=== PATIENT | male | born 1960 | race Caucasian/White ===

== ENCOUNTER 2016-11-11 15:32 | Observation (INO) | payer OTHER ==
[2016-11-11 15:56] VITALS: BP 132/63; PULSE 82; RESP 16; TEMP 98.1; O2SAT 96
--- NOTE | 2016-11-11 15:59 | PD ---
HPI Chief Complaint: Cardiac Complaint Travel History International Travel<30 days: No Contact w/Intl Traveler<30days: No Traveled to known affect area: No PFSH Past Medical History Cardiovascular Problems: Yes Allergies-Medications Reported Meds & Prescriptions Reported Meds & Active Scripts Active Reported Fish Oil 1000 mg ([place]-3 Fatty Acids) Unknown Strength Cap 1 Cap PO DAILY Aspirin Adult Low Strength (Aspirin) 81 Mg Tabdr 324 Mg PO DAILY Metoprolol Succinate ER 24 HR (Metoprolol Succinate) 50 Mg Tab 50 Mg PO DAILY Fenofibrate 160 Mg Tab 160 Mg PO DAILY Atorvastatin (Atorvastatin Calcium) 40 Mg Tab 40 Mg PO DAILY Data Data Last Documented VS Vital Signs Date Time Temp Pulse Resp B/P Pulse Ox O2 Delivery O2 Flow Rate FiO2 11/11/16 15:58 Room Air 11/11/16 15:56 98.1 82 16 132/63 96 Orders Electrocardiogram (11/11/16 15:49) Ckmb (Isoenzyme) Profile (11/11/16 15:49) Complete Blood Count With Diff (11/11/16 15:49) Comprehensive Metabolic Panel (11/11/16 15:49) Magnesium (Mg) (11/11/16 15:49) Prothrombin Time / Inr (Pt) (11/11/16 15:49) Act Partial Throm Time (Ptt) (11/11/16 15:49) Troponin I (11/11/16 15:49) Lipase (11/11/16 15:49) Chest, Single Ap (11/11/16 15:49) Ecg Monitoring (11/11/16 15:49) Bilateral Bp Monitoring (11/11/16 15:49) Iv Access Insert/Monitor (11/11/16 15:49) Oximetry (11/11/16 15:49) Sodium Chloride 0.9% Flush (Ns Flush) (11/11/16 16:00) Yudy Mckeon Nov 11, 2016 15:59
[2016-11-11] MEDS ORDERED: SODIUM CHLORIDE 0.9% FLUSH 10 ML FLUSH IVF PRN (16:00)
[2016-11-11] MEDS ORDERED: METO50TA11 PO (16:34)
[2016-11-11] MEDS ORDERED: ATOR40TA16 PO (16:34)
[2016-11-11] MEDS ORDERED: FENO160T PO (16:34)
[2016-11-11] MEDS ORDERED: FISH100020 PO (16:34)
[2016-11-11] MEDS ORDERED: ASPI1TAB91 PO (16:34)
--- NOTE | 2016-11-11 16:37 | RADRPT ---
EXAM DATE/TIME: 11/11/2016 16:07 [place] COMPARISON: No previous studies available for comparison. INDICATIONS : Chest pain. MEDICAL HISTORY : Myocardial infarction. Coronary artery disease, hyperlipidemia SURGICAL HISTORY : Coronary artery bypass graft. ENCOUNTER: Initial ACUITY: 1 day PAIN SCORE: 3/10 LOCATION: Bilateral chest FINDINGS: The lungs are clear without infiltrate, nodule, or mass. There is no appreciable pleural effusion fo r technique. Heart and mediastinum are unremarkable. There is evidence for prior median sternotomy. CONCLUSION: No acute cardiopulmonary disease. Yesenia De Jesus MD on November 11, 2016 at 16:35 Board Certified Radiologist. This report was verified electronically.
--- NOTE | 2016-11-11 16:46 | PD ---
HPI Chief Complaint: Cardiac Complaint Time Seen by Provider: 15:58 Travel History International Travel<30 days: No Contact w/Intl Traveler<30days: No Traveled to known affect area: No History of Present Illness HPI 56-year-old male presents with chest pain with exertion. He has none at rest currently. He received 4 baby aspirin prior to arrival. He does not recall who his senior lead project manager is but states that it is someone from [facility]. He states his last heart workup was when he had his bypass a couple years ago. He states he can't remember when he saw his senior lead project manager last. Quality was pressure. Severity is currently resolved. He denies modifying factors other than movement. He states he didn't have any nitroglycerin and it went away on its own. PFSH Past Medical History Cardiovascular Problems: Yes Coronary Artery Disease: Yes Hypertension: Yes Myocardial Infarction: Yes Triglycerides - High: Yes Past Surgical History Coronary Artery Bypass Graft: Yes (x4) Social History Alcohol Use: Yes Tobacco Use: Yes Substance Use: No Allergies-Medications Reported Meds & Prescriptions Reported Meds & Active Scripts Active Reported Fish Oil 1000 mg ([place]-3 Fatty Acids) Unknown Strength Cap 1 Cap PO DAILY Aspirin Adult Low Strength (Aspirin) 81 Mg Tabdr 324 Mg PO DAILY Metoprolol Succinate ER 24 HR (Metoprolol Succinate) 50 Mg Tab 50 Mg PO DAILY Fenofibrate 160 Mg Tab 160 Mg PO DAILY Atorvastatin (Atorvastatin Calcium) 40 Mg Tab 40 Mg PO DAILY Review of Systems Except as stated in HPI: all other systems reviewed are Neg Physical Exam Exam Limitations: Poor Historian Narrative GENERAL: Well-nourished, well-developed patient. SKIN: Warm and dry. HEAD: Normocephalic and atraumatic. EYES: No injection or drainage. ENT: No nasal drainage noted. NECK: Supple, trachea midline. CARDIOVASCULAR: Regular rate and rhythm RESPIRATORY: Breath sounds equal bilaterally at apices. No accessory muscle use. GASTROINTESTINAL: Abdomen soft, non-tender, nondistended. NEUROLOGICAL: Awake and alert. Moves all extremities. Normal speech. Data Data Last Documented VS Vital Signs Date Time Temp Pulse Resp B/P Pulse Ox O2 Delivery O2 Flow Rate FiO2 11/11/16 15:58 Room Air 11/11/16 15:56 98.1 82 16 132/63 96 Orders Electrocardiogram (11/11/16 15:49) Ckmb (Isoenzyme) Profile (11/11/16 15:49) Complete Blood Count With Diff (11/11/16 15:49) Comprehensive Metabolic Panel (11/11/16 15:49) Magnesium (Mg) (11/11/16 15:49) Prothrombin Time / Inr (Pt) (11/11/16 15:49) Act Partial Throm Time (Ptt) (11/11/16 15:49) Troponin I (11/11/16 15:49) Lipase (11/11/16 15:49) Chest, Single Ap (11/11/16 15:49) Ecg Monitoring (11/11/16 15:49) Bilateral Bp Monitoring (11/11/16 15:49) Iv Access Insert/Monitor (11/11/16 15:49) Oximetry (11/11/16 15:49) Sodium Chloride 0.9% Flush (Ns Flush) (11/11/16 16:00) CKMB (11/11/16 16:00) CKMB% (11/11/16 16:00) Labs Laboratory Tests Test 11/11/16 16:00 White Blood Count 9.4 TH/MM3 Red Blood Count 5.24 MIL/MM3 Hemoglobin 13.8 GM/DL Hematocrit 41.5 % Mean Corpuscular Volume 79.2 FL Mean Corpuscular Hemoglobin 26.3 PG Mean Corpuscular Hemoglobin 33.2 % Concent Red Cell Distribution Width 16.0 % Platelet Count 292 TH/MM3 Mean Platelet Volume 8.5 FL Neutrophils (%) (Auto) 62.0 % Lymphocytes (%) (Auto) 29.7 % Monocytes (%) (Auto) 6.1 % Eosinophils (%) (Auto) 1.5 % Basophils (%) (Auto) 0.7 % Neutrophils # (Auto) 5.9 TH/MM3 Lymphocytes # (Auto) 2.8 TH/MM3 Monocytes # (Auto) 0.6 TH/MM3 Eosinophils # (Auto) 0.1 TH/MM3 Basophils # (Auto) 0.1 TH/MM3 CBC Comment AUTO DIFF Prothrombin Time 10.8 SEC Prothromb Time International 1.0 RATIO Ratio Activated Partial 21.5 SEC Thromboplast Time Sodium Level 139 MEQ/L Potassium Level 4.2 MEQ/L Chloride Level 107 MEQ/L Carbon Dioxide Level 21.5 MEQ/L Anion Gap 11 MEQ/L Blood Urea Nitrogen 19 MG/DL Creatinine 1.15 MG/DL Estimat Glomerular Filtration 65 ML/MIN Rate Random Glucose 141 MG/DL Calcium Level 9.2 MG/DL Magnesium Level 1.9 MG/DL Total Bilirubin 0.2 MG/DL Aspartate Amino Transf 24 U/L (AST/SGOT) Alanine Aminotransferase 19 U/L (ALT/SGPT) Alkaline Phosphatase 47 U/L Total Creatine Kinase 156 U/L Troponin I LESS THAN 0.02 NG/ML Total Protein 7.5 GM/DL Albumin 3.5 GM/DL Lipase 214 U/L MDM Medical Decision Making Medical Screen Exam Complete: Yes Emergency Medical Condition: Yes Medical Record Reviewed: Yes (past history confirmed) Interpretation(s) EKG shows NSR, no ST elevation or depression, and no arrhythmias. No significant T-wave inversions. CBC & BMP Diagram 11/11/16 16:00 Last 24 hours Impressions Chest X-Ray 11/11/16 1549 Signed Impressions: Service Date/Time: Sunday, November 11, 2016 16:07 - CONCLUSION: No acute cardiopulmonary disease. KGeeta De Jesus MD Differential Diagnosis Cardiac, gastritis, musculoskeletal, pneumothorax Narrative Course Will check blood work, chest x-ray and follow ed workup no acute, agrees to [facility] observation Diagnosis Primary Impression: Chest pain Qualified Code: R07.9 - Chest pain, unspecified type Bobbi Tracey MD Nov 11, 2016 16:46
[2016-11-11 17:51] LABS: APTT (PATIENT) 21.5 SEC (24.3-30.1); PROTHROMBIN TIME - PATIENT 10.8 SEC (9.8-11.6)
[2016-11-11 17:53] LABS: AUTOMATED NEUTROPHIL # 5.9 TH/MM3 (1.8-7.7); BASOPHIL # 0.1 TH/MM3 (0-0.2); BASOPHIL % 0.7 % (0.0-2.0); EOSINOPHIL # 0.1 TH/MM3 (0-0.4); EOSINOPHIL % 1.5 % (0.0-4.0); HEMATOCRIT 41.5 % (39.0-51.0); LYMPH % 29.7 % (9.0-44.0); LYMPHOCYTE # 2.8 TH/MM3 (1.0-4.8); MEAN CELL VOLUME 79.2 FL (80.0-100.0); MEAN CORPUSCULAR HEMOGLOBIN 26.3 PG (27.0-34.0); MEAN CORPUSCULAR HGB CONC 33.2 % (32.0-36.0); MONO % 6.1 % (0.0-8.0); PLATELET COUNT 292 TH/MM3 (150-450); RED BLOOD COUNT 5.24 MIL/MM3 (4.50-5.90); WHITE BLOOD COUNT 9.4 TH/MM3 (4.0-11.0)
[2016-11-11 17:58] LABS: HEMO FLAGS AUTO DIFF
[2016-11-11 18:07] LABS: ALKALINE PHOSPHATASE 47 U/L (45-117); ALT (GPT) 19 U/L (12-78); ANION GAP 11 MEQ/L (5-15); AST (GOT) 24 U/L (15-37); BICARBONATE 21.5 MEQ/L (21.0-32.0); BLOOD UREA NITROGEN 19 MG/DL (7-18); CHLORIDE 107 MEQ/L (98-107); CREATINE KINASE 156 U/L (39-308); GLOMERULAR FILTRATION RATE 65 ML/MIN (>89); MAGNESIUM 1.9 MG/DL (1.5-2.5); SODIUM (NA) 139 MEQ/L (136-145); TOTAL BILIRUBIN ADULT 0.2 MG/DL (0.2-1.0)
[2016-11-11 18:08] LABS: POTASSIUM 4.2 MEQ/L (3.5-5.1)
[2016-11-11 18:20] LABS: CKMB 1.2 NG/ML (0.5-3.6)
[2016-11-11] MEDS ORDERED: SODIUM CHLORIDE 0.9% FLUSH 10 ML FLUSH IV FLUSH PRN (18:30)
[2016-11-11] MEDS ORDERED: ROCURONIUM INJ 50 MG/5 ML VIAL ONE (19:02)
[2016-11-11 19:03] VITALS: BP 166/70; PULSE 62; RESP 17; O2SAT 96
[2016-11-11] MEDS ORDERED: ETOMIDATE 40 MG/20 ML VIAL ONE (19:03)
[2016-11-11 19:19] LABS: SCAN/DIFF AUTO DIFF CONFIRMED
[2016-11-11 19:40] LABS: CREATINE KINASE 126 U/L (39-308)
[2016-11-11 19:46] VITALS: BP 148/70; PULSE 68; RESP 16; O2SAT 96
[2016-11-11 19:53] LABS: CKMB 1.3 NG/ML (0.5-3.6)
[2016-11-11] MEDS ORDERED: PROPOFOL 1000 MG/100 ML INJ 100 ML ONE (20:02)
[2016-11-11] MEDS ORDERED: SODIUM CHLORIDE 0.9% FLUSH 10 ML FLUSH IV FLUSH SCH (21:00)
[2016-11-11 22:20] LABS: CREATINE KINASE 127 U/L (39-308)
[2016-11-11 23:03] VITALS: BP 135/55; PULSE 76; RESP 16; O2SAT 97
[2016-11-11 23:28] VITALS: BP 177/79; PULSE 70; RESP 20; TEMP 97.9; O2SAT 98
[2016-11-12 01:20] VITALS: PULSE 69
[2016-11-12 03:39] VITALS: BP 114/58; PULSE 61; RESP 18; TEMP 98; O2SAT 95
[2016-11-12 04:00] VITALS: PULSE 71
[2016-11-12 07:38] VITALS: BP 121/58; PULSE 78; RESP 16; TEMP 97.9; O2SAT 97
[2016-11-12] MEDS ORDERED: OMEP20TA PO (07:43)
[2016-11-12] MEDS ORDERED: POTA-163 PO (07:43)
[2016-11-12] MEDS ORDERED: CLON0.2T PO (07:43)
[2016-11-12] MEDS ORDERED: CIAL5TAB PO (07:43)
[2016-11-12] MEDS ORDERED: ENAL10TA7 (07:43)
[2016-11-12] MEDS ORDERED: TRAM-492 PO (07:43)
[2016-11-12] MEDS ORDERED: PLAV75TA29 PO (07:43)
[2016-11-12 07:50] VITALS: O2SAT 97
--- NOTE | 2016-11-12 15:32 | HHI.HP ---
HPI Primary Care Physician Олег Ugarte, DO Chief Complaint Chest pain History of Present Illness Mr. Boo is a 56-year-old male patient with a known medical history of CAD with 4 stents, HTN, and dyslipidemia who presented to the ED with complaints of chest pain. Patient states that he had been stressed regarding a family issue and suddenly noticed a tight and squeezing in nature, left-sided chest pain, rated a 10/10 on pain scale, lasting roughly 10 minutes and eventually subsided after rest. Admits to associated dyspnea and diaphoresis. Denies any nausea or vomiting. Denies any radiation of the pain. Pain has currently subsided. He does state 2 years ago he had a stress test which was abnormal and eventually led to a CABG x 4 vessels. Does admit to current tobacco use and a [id number] history of cigarette smoking. Patient states he does follow with a cnc manufacturing engineer but does not remember his name and supposedly has a stress test scheduled in 2 weeks. Review of Systems Respiratory: COMPLAINS OF: See HPI, Shortness of breath Cardiovascular: COMPLAINS OF: See HPI, Chest pain Gastrointestinal: DENIES: Nausea, Vomiting Psychiatric: COMPLAINS OF: Anxiety Past Family Social History Allergies: Coded Allergies: No Known Allergies (Unverified , 11/11/16) Past Medical History CAD with history of CABG Hypertension Dyslipidemia Past Surgical History CABG x 4 vessels Reported Medications Reported Meds & Active Scripts Active Reported Fish Oil 1000 mg ([place]-3 Fatty Acids) Unknown Strength Cap 1 Cap PO DAILY Aspirin Adult Low Strength (Aspirin) 81 Mg Tabdr 324 Mg PO DAILY Fenofibrate 160 Mg Tab 160 Mg PO DAILY Family History Denies any significant family medical history of cardiovascular disease. Social History States he quit smoking cigarettes 30 hours ago, has smoked 1 ppd for 35 years. Denies any alcohol use. Does admit to occasional marijuana use. Physical Exam Vital Signs Vital Signs Date Time Temp Pulse Resp B/P (MAP) Pulse Ox O2 Delivery O2 Flow Rate FiO2 11/12/16 07:50 97 21 11/12/16 07:38 97.9 78 16 121/58 (79) 97 11/12/16 04:00 71 11/12/16 03:39 98.0 61 18 114/58 (76) 95 11/12/16 01:20 69 11/11/16 23:28 97.9 70 20 177/79 (111) 98 11/11/16 23:03 76 16 135/55 (81) 97 Room Air 11/11/16 19:46 68 16 148/70 (96) 96 Room Air 11/11/16 19:04 62 17 96 Room Air 11/11/16 19:03 62 17 166/70 (102) 96 Room Air 11/11/16 15:58 Room Air 11/11/16 15:56 98.1 82 16 132/63 (86) 96 Laboratory Laboratory Tests Test 11/11/16 16:00 11/11/16 18:40 11/11/16 21:40 White Blood Count 9.4 Red Blood Count 5.24 Hemoglobin 13.8 Hematocrit 41.5 Mean Corpuscular Volume 79.2 Mean Corpuscular Hemoglobin 26.3 Mean Corpuscular Hemoglobin Concent 33.2 Red Cell Distribution Width 16.0 Platelet Count 292 Mean Platelet Volume 8.5 Neutrophils (%) (Auto) 62.0 Lymphocytes (%) (Auto) 29.7 Monocytes (%) (Auto) 6.1 Eosinophils (%) (Auto) 1.5 Basophils (%) (Auto) 0.7 Neutrophils # (Auto) 5.9 Lymphocytes # (Auto) 2.8 Monocytes # (Auto) 0.6 Eosinophils # (Auto) 0.1 Basophils # (Auto) 0.1 CBC Comment AUTO DIFF Differential Comment AUTO DIFF CONFIRMED Prothrombin Time 10.8 Prothromb Time International Ratio 1.0 Activated Partial Thromboplast Time 21.5 Blood Urea Nitrogen 19 Creatinine 1.15 Random Glucose 141 Total Protein 7.5 Albumin 3.5 Calcium Level 9.2 Magnesium Level 1.9 Alkaline Phosphatase 47 Aspartate Amino Transf (AST/SGOT) 24 Alanine Aminotransferase (ALT/SGPT) 19 Total Bilirubin 0.2 Sodium Level 139 Potassium Level 4.2 Chloride Level 107 Carbon Dioxide Level 21.5 Anion Gap 11 Estimat Glomerular Filtration Rate 65 Total Creatine Kinase 156 126 127 Creatine Kinase MB 1.2 1.3 1.0 Troponin I LESS THAN 0.02 LESS THAN 0.02 LESS THAN 0.02 Lipase 214 Result Diagram: 11/11/16 1600 11/11/16 1600 Imaging Last 24 hours Impressions Chest X-Ray 11/11/16 1542 Signed Impressions: Service Date/Time: Friday, November 11, 2016 16:07 - CONCLUSION: No acute cardiopulmonary disease. MD Lyndsey Boonei VTE Risk Assessment Caprini VTE Risk Assessment: No/Low Risk (score <= 1) Caprini Risk Assessment Model Point Value = 1 Point Value = 2 Point Value = 3 Point Value = 5 Age 41-60 Minor surgery BMI > 25 kg/m2 Swollen legs Varicose veins or History of unexplained or recurrent spontaneous Oral contraceptives or hormone replacement Sepsis (< 1 month) Serious lung disease, including pneumonia (< 1 month) Abnormal pulmonary function Acute myocardial infarction Congestive heart failure (< 1 month) History of inflammatory bowel disease Medical patient at bed rest Age 61-74 Arthroscopic surgery Major open surgery (> 45 min) Laparoscopic surgery (> 45 min) Malignancy Confined to bed (> 72 hours) Immobilizing plaster cast Central venous access Age >= 75 History of VTE Family history of VTE Factor V Leiden Prothrombin [id number] Lupus anticoagulant Anticardiolipin antibodies Elevated serum homocysteine Heparin-induced thrombocytopenia Other congenital or acquired thrombophilia Stroke (< 1 month) Elective arthroplasty Hip, pelvis, or leg fracture Acute spinal cord injury (< 1 month) Prophylaxis Regimen Total Risk Factor Score Risk Level Prophylaxis Regimen 0-1 Low Early ambulation 2 Moderate Order ONE of the following: *Sequential Compression Device (SCD) *Heparin 5000 units SQ BID 3-4 Higher Order ONE of the following medications: *Heparin 5000 units SQ TID *Enoxaparin/Lovenox 40 mg SQ daily (WT < 150 kg, CrCl > 30 mL/min) *Enoxaparin/Lovenox 30 mg SQ daily (WT < 150 kg, CrCl > 10-29 mL/min) *Enoxaparin/Lovenox 30 mg SQ BID (WT < 150 kg, CrCl > 30 mL/min) AND/OR *Sequential Compression Device (SCD) 5 or more Highest Order ONE of the following medications: *Heparin 5000 units SQ TID (Preferred with Epidurals) *Enoxaparin/Lovenox 40 mg SQ daily (WT < 150 kg, CrCl > 30 mL/min) *Enoxaparin/Lovenox 30 mg SQ daily (WT < 150 kg, CrCl > 10-29 mL/min) *Enoxaparin/Lovenox 30 mg SQ BID (WT < 150 kg, CrCl > 30 mL/min) AND *Sequential Compression Device (SCD) Assessment and Plan Assessment and Plan * Chest pain: Patient has history of CAD with CABG. He had serial cardiac enzymes and EKGs for ruling out purposes and was seen by Dr. Schmid of cardiology in the chest pain center. A nuclear ETT was ordered however prior to this being started the patient decided to leave AGAINST MEDICAL ADVICE. Risks of this were explained to the patient by the nurse and he still chooses to leave AGAINST MEDICAL ADVICE. He should return to ED if he changes his mind otherwise follow-up with his physicians. * Patient left AGAINST MEDICAL ADVICE. Phil Matute Nov 12, 2016 15:32
--- NOTE | 2016-11-12 16:29 | EKG ---
Date Performed: 11/11/2016 Time Performed: 21:59:17 PTAGE: 56 years EKG: SINUS BRADYCARDIA MINIMAL VOLTAGE CRITERIA FOR LVH, CONSIDER NORMAL VARIANT NONSPECIFIC T-W AVE ABNORMALITY BORDERLINE ECG PREVIOUS TRACING : 11/11/2016 18.41 Since previous tracing, no significant change noted DOCTOR: Balaji Schmid Interpretating Date/Time 11/12/2016 16:28:27
--- NOTE | 2016-11-12 16:31 | EKG ---
Date Performed: 11/11/2016 Time Performed: 18:41:31 PTAGE: 56 years EKG: Sinus rhythm NONSPECIFIC T-WAVE ABNORMALITY BORDERLINE ECG PREVIOUS TRACING : 11/11/2016 16.01 Since previous tracing, no significant change noted DOCTOR: Balaji Schmid Interpretating Date/Time 11/12/2016 16:30:43
--- NOTE | 2016-11-12 16:34 | EKG ---
Date Performed: 11/11/2016 Time Performed: 16:01:13 PTAGE: 56 years EKG: Sinus rhythm NONSPECIFIC T-WAVE ABNORMALITY BORDERLINE ECG NO PREVIOUS TRACING DOCTOR: Balaji Schmid Interpretating Date/Time 11/12/2016 16:33:23
== END 2016-11-12 14:57 | disposition left against medical advice (07) ==
LOC: NEPC 15:32 → NEDA 18:18 → NEPFCDU 23:16
DX: R07.89 Other chest pain (principal); I11.0 Hypertensive heart disease with heart failure; I25.10 Atherosclerotic heart disease of native coronary artery without angina pectoris; I25.2 Old myocardial infarction; Z95.1 Presence of aortocoronary bypass graft; Z95.5 Presence of coronary angioplasty implant and graft; I50.9 Heart failure, unspecified; E78.5 Hyperlipidemia, unspecified; F12.90 Cannabis use, unspecified, uncomplicated; F17.200 Nicotine dependence, unspecified, uncomplicated; Z79.82 Long term (current) use of aspirin; Z79.899 Other long term (current) drug therapy
CPT/HCPCS: 71010; 80053; 82550; 82552; 83690; 83735; 84484; 85025; 85610; 85730; 93005; 99285; G0378